=== PATIENT | female | born 1955 ===

== ENCOUNTER 2017-08-13 14:44 | Emergency (ER) | payer SELFPAY ==
[2017-08-13 15:09] VITALS: BP 131/75; PULSE 83; RESP 16; TEMP 98.7; O2SAT 100
--- NOTE | 2017-08-13 15:19 | PD ---
HPI Chief Complaint: Power Distribution Engineer Problem Time Seen by Provider: 15:19 Travel History International Travel<30 days: No Contact w/Intl Traveler<30days: No Traveled to known affect area: No History of Present Illness HPI 62 yo F requests replacement for colostomy bag wafer because she is out of town and has none available. no additional complaint offered today. PFSH Social History Tobacco Use: Yes Review of Systems HENT: No: Headaches Cardiovascular: No: Chest Pain or Discomfort Physical Exam Narrative GENERAL: 62 yo F, NAD ABD: Miner ostomy with formed stool. Ostomy is patent and protuberant. SKIN: Warm and dry. HEAD: Normocephalic. EYES: No scleral icterus. No injection or drainage. NECK: Supple, trachea midline. No JVD or lymphadenopathy. RESPIRATORY: Breath sounds equal bilaterally. No accessory muscle use. GASTROINTESTINAL: Abdomen soft, non-tender, nondistended. MUSCULOSKELETAL: No cyanosis, or edema. BACK: Nontender without obvious deformity. No CVA tenderness. Data Data Last Documented VS Vital Signs Date Time Temp Pulse Resp B/P (MAP) Pulse Ox O2 Delivery O2 Flow Rate FiO2 08/13/17 15:09 98.7 83 16 131/75 (93) 100 Orders Orders Ed Discharge Order (08/13/17 15:19) Colostomy Kit 2 1/4" Moldable (08/13/17 15:27) MDM Medical Decision Making Medical Screen Exam Complete: Yes Emergency Medical Condition: Yes Differential Diagnosis ostomy care, medical equipment failure, ostomy replacement Narrative Course wafers supplied Diagnosis Primary Impression: Colostomy care Med/Other Pt SpecificInfo: No Change to Meds Disposition: 01 DISCHARGE HOME Condition: Stable Nael Ruiz MD Aug 13, 2017 15:19
== END 2017-08-13 15:56 | disposition home or self-care (01) ==
LOC: NEPK 14:44
DX: Z46.6 Encounter for fitting and adjustment of urinary device (principal); Z93.3 Colostomy status
CPT/HCPCS: 99281